=== PATIENT | male | born 1975 | race Caucasian/White ===

== ENCOUNTER → 2019-06-16 | Outpatient (CLI) | payer OTHER ==
--- NOTE | 2019-06-17 16:41 | CARDNUC ---
[place] [address] CARDIAC NUCLEAR IMAGING REPORT Name: MUNDO BRADLEY Room: [facility]#: [id number] Admission: 06/16/19 Attend Phys: Leif Milligan Discharge: Date of : 77 Date of Service: 06/17/19 [facility] Report #: [id number] THIS REPORT FOR: //name// APPROVED REPORT Study performed: 06/16/2019 07:30:00 Indication: CAD s/p PCI, CAD s/p CT Patient Location: Out-Patient Stress Tech: Darrick Harris Stress Nurse: Li Li RN Ht: 5 ft 5 in Wt: 155 lbs BSA: 1.77 m2 BMI: 25.79 Medical History Medical History: Angina, CAD s/p CT, CAD s/p stent, Current Smoker, HTN, Hyperlipidemia. Medications: ASA 81 mg, Atorvastatin, Carvedilol, NTG, Ticagrelor. Allergies: Penicillin Cardiac Risk Factors: Current Smoker, FHX of CAD, HTN, Hyperlipidemia, HX CT/PCI. Previous Cardiac Procedures: Myocardial infarction, PCI. Pretest Chest Pain Characteristics: No chest pain Exercise History: Physically active Physical Disabilities: None Meds Held (24 hrs): Carvedilol, NTG. Resting Data Rest SPECT myocardial perfusion imaging was performed in supine position 30 minutes following the intravenous injection of 11.5 mCi of Tc-99m Sestamibi. Time of rest injection: 07:55 The images were gated to evaluate regional wall motion and calculate left ventricular ejection fraction. Administration Route: IV Administration Site: Right Hand Exercise Stress At peak stress, the patient was injected intravenously with 36.0mCi of Tc-99m Sestamibi. Time of stress injection: 09:40 Administration Route: IV Administration Site: [place] [address] CARDIAC NUCLEAR IMAGING REPORT Name: MUNDO BRADLEY Room: [facility]#: [id number] Admission: 06/16/19 Attend Phys: Leif Milligan Discharge: Date of : 77 Date of Service: 06/17/19 [facility] Report #: [id number] Heart Rate at time of stress injection: 158 bpm. Gated Stress SPECT was performed 30 minutes after stress injection. The images were gated to evaluate regional wall motion and calculate left ventricular ejection fraction. Prone imaging was performed. Stress Test Details Stress Test: Exercise stress testing was performed using a Bartolo protocol. HR Max Heart Rate (APMHR): 178 bpm Resting HR: 71 bpm Target HR (85% APMHR): 151 bpm Max HR Achieved: 158 bpm % of APMHR: 88 Recovery HR: 81 bpm BP Resting BP: 139/92 mmHg Max BP: 152/70 mmHg Recovery BP: 137/80 mmHg ECG Resting ECG: Sinus Rhythm Stress ECG: Sinus Tachycardia ST Change: None Arrhythmia: None Recovery ECG: Sinus Rhythm Recovery ST Change: None Recovery Arrhythmia: None Clinical Reason for Termination: Completed protocol, Target HR Achieved. Stress Symptoms: Dyspnea, Leg Fatigue. Exercise duration: 13 min 19 sec Exercise capacity: 14.40 METs Overall Exercise Capacity for Age: Superior The patient tolerated status Bartolo protocol exercise without significant cardiac symptoms. Nurse Comments A 43 YEAR OLD MALE S/P PCI AND CT PRESENTED FOR BARTOLO PROTOCOL NUCLEAR STRESS TEST. PATIENT TOLERATED TEST WELL. EXCERCISE CAPACITY - SUPERIOR. RECOVERY UNREMARKABLE. PATIENT WAS ESCORTED BY STAFF TO NUCLEAR MEDICINE FOR IMAGES. PATIENT WAS STABLE WITH NO COM[place] [address] CARDIAC NUCLEAR IMAGING REPORT Name: MUNDO BRADLEY Room: [facility]#: [id number] Admission: 06/16/19 Attend Phys: Leif Milligan Discharge: Date of : 77 Date of Service: 06/17/19 [facility] Report #: [id number] Stress ECG Conclusion The baseline 12-lead EKG show sinus rhythm without significant ST or T wave abnormality. EKGs obtained during and post exercise showed sinus rhythm and sinus tachycardia with no significant ST or T wave changes when compared to baseline. There were no stress-induced arrhythmias. Study Quality Study: Good Artifact: No artifact Study Data At rest, the left ventricular ejection fraction was 62%.. Post stress, the left ventricular ejection was 64%.. TID = 1.04. Perfusion Normal left ventricular perfusion. Wall Motion Normal left ventricular wall motion. Nuclear Conclusion ECG Findings: negative for ischemia Clinical Findings: negative for ischemia Nuclear Findings: negative for ischemia Exercise Capacity: normal Left Ventricular Function: normal Risk Study: low Myocardial perfusion images show no defect to suggest infarct or ischemia. Left ventricular systolic function was normal on gated studies. This is a low risk study. <Conclusion> The baseline 12-lead EKG show sinus rhythm without significant ST or T wave abnormality. EKGs obtained during and post exercise showed sinus rhythm and sinus tachycardia with no significant ST or T wave changes when compared to baseline. There were no stress-induced arrhythmias. <ELECTRONICALLY SIGNED> By: Rodrigo Frances MD, FACC 06/17/19 1640 [id number] 1640 Rodrigo Frances MD, FACC /INF
== END ==
LOC: M.NUC 04-10 10:55
DX: I25.10 Atherosclerotic heart disease of native coronary artery without angina pectoris (principal); I24.9 Acute ischemic heart disease, unspecified; I25.2 Old myocardial infarction; I10 Essential (primary) hypertension; E78.5 Hyperlipidemia, unspecified; F17.200 Nicotine dependence, unspecified, uncomplicated; Z95.5 Presence of coronary angioplasty implant and graft